=== PATIENT | male | born 1960 | race Caucasian/White ===

== ENCOUNTER → 2017-09-22 | Outpatient (CLI) | payer OTHER ==
[~2017-09-22] MED LIST: ASPI-1471 PO; ATOR20TA65 PO; BLOO-1037 MC; BLOO-1318 MC; BLOO-1764 MC; BLOO-1775 MC; CYCL10TA29 PO; DICL100G39 TOP; GLY25 PO; LANC-1295 MC; LISI-362 PO; METF-410 PO; METF10002 PO; NAPR-724 PO; PRAV20TA66 PO; Return to work; [UNRECOGNIZED DRUG - CODE]; [UNRECOGNIZED DRUG - OTHER]
== END ==
LOC: LAB 13:58
PROVIDERS: ATTEND Nurse Practitioner Family
DX: I10 Essential (primary) hypertension (principal)
CPT/HCPCS: 36415; 82310; 82374; 82435; 82565; 82947; 84132; 84295; 84520

== ENCOUNTER → 2018-02-23 | Outpatient (CLI) | payer BC ==
[~2018-02-23] MED LIST changes: -METF-410 PO; +METF-411 PO; -NAPR-724 PO; +NAPR500T31 PO
== END ==
LOC: LAB 14:55
PROVIDERS: ATTEND Nurse Practitioner Family
DX: E11.9 Type 2 diabetes mellitus without complications (principal)
CPT/HCPCS: 36415; 82040; 82247; 82310; 82374; 82435; 82565; 82947; 83036; 84075; 84132; 84155; 84295; 84443; 84450; 84460; 84520

== ENCOUNTER → 2018-06-16 | Outpatient (CLI) | payer BC ==
[~2018-06-16] MED LIST changes: +ALBU2.5V36 INH; +ALBU8.5H IH; +AZIT-1 PO; +IPRA3AMP10 IH; -METF-411 PO; +METF-450 PO; +PRED20TA6 PO; +Work Note; +[UNRECOGNIZED DRUG - SUPPLY] MC
== END ==
LOC: LAB 08:12
PROVIDERS: ATTEND Nurse Practitioner Family
DX: E11.9 Type 2 diabetes mellitus without complications (principal)
CPT/HCPCS: 36415; 83036

== ENCOUNTER → 2018-06-19 | Outpatient (CLI) | payer BC ==
[~2018-06-19] MED LIST changes: +GUAI120L3 PO
--- NOTE | 2018-06-19 10:33 | RADIOLOGY IMAGING REPORT ---
[facility] PATIENT NAME: August Garcia : 1960 MR: [id number] V: [id number] EXAM DATE: ORDERING PHYSICIAN: STEPHANIE ZUNIGA TECHNOLOGIST: Location: [facility] [place] Patient: August Garcia : 1960 Visit/Account:[id number] Date of Sevice: 06/19/2018 CHEST PA AND LAT INDICATION: Cough COMPARISON: None available FINDINGS: The cardiac silhouette is normal in size. No pneumothorax. The lungs are clear. Idiopa thic skeletal hyperostosis noted in the thoracic spine. No pleural fluid. IMPRESSION: Normal chest radiographs without acute finding. Report Dictated By: Rod Baerd MD at 06/19/2018 10:27 AM Report E-Signed By: Rod Beard MD at 06/19/2018 10:29 AM WSN:[id number]
== END ==
LOC: RAD 09:44
PROVIDERS: ATTEND Nurse Practitioner Primary Care
DX: R05 Cough (principal)
CPT/HCPCS: 71046

== ENCOUNTER → 2018-11-06 | Outpatient (CLI) | payer BC ==
[~2018-11-06] MED LIST changes: +AMLO-125 PO; +LISI20TA29 PO
== END ==
LOC: LAB 13:13
PROVIDERS: ATTEND Nurse Practitioner Primary Care
DX: J09.X9 Influenza due to identified novel influenza A virus with other manifestations (principal)
CPT/HCPCS: 87502

== ENCOUNTER → 2019-04-16 | Outpatient (CLI) | payer BC ==
[2019-04-16 15:17] LABS: PLATELET COUNT, AUTOMATED 219 K/uL (150-450)
[2019-04-16 18:37] LABS: LDL CHOLESTEROL 53 mg/dl
== END ==
LOC: LAB 14:40
PROVIDERS: ATTEND Nurse Practitioner Family
DX: Z12.5 Encounter for screening for malignant neoplasm of prostate (principal); E78.5 Hyperlipidemia, unspecified; I10 Essential (primary) hypertension; E11.9 Type 2 diabetes mellitus without complications
CPT/HCPCS: 82040; 82247; 82310; 82374; 82435; 82465; 82565; 82947; 83036; 83718; 84075; 84132; 84153; 84155; 84295; 84443; 84450; 84460; 84478; 84520; 85025